=== PATIENT | male | born 1985 | race African-American/Black ===

== ENCOUNTER 2021-07-14 12:17 | Emergency (ER) | payer SELFPAY ==
[~2021-07-14] VITALS: Ht 172.7 cm; Wt 80.9 kg
[2021-07-14 12:28] VITALS: BP 129/83
[2021-07-14] MEDS ORDERED: LIDOCAINE 2% 20 ML VIAL. ONE (13:08)
[2021-07-14] MEDS ORDERED: AMOX1TAB61 PO (13:25)
--- NOTE | 2021-07-14 13:25 | PHYS DOC ---
Adult General Chief Complaint Chief Complaint: ANIMAL BITE HPI HPI Patient is a 36-year-old male presenting for dog bite. Injury onset was yesterday evening. Patient stuck his hand in cage which held his pet pit bull who subsequently bit his right hand. Reports he had minor skin tear to dorsal portion of hand but did suffer a laceration between the web of the second and third digit of right hand. No changes in motor or sensory or neuro function. He is concerned he might need sutures prompting him to come in for evaluation today. Denies any medical issues, unsure when tetanus was last administered Review of Systems Review of Systems Fourteen body systems of review of systems have been reviewed. See HPI for pertinent positives and negative responses, other lopez all other systems are negative, non-pertinent or non-contributory Physical Exam Physical Exam Constitutional: Well developed, well nourished, no acute distress, non-toxic appearance. HENT: Normocephalic, atraumatic, bilateral external ears normal, oropharynx moist, no oral exudates, nose normal. Eyes: PERRLA, EOMI, conjunctiva normal, no discharge. Neck: Normal range of motion, no tenderness, supple, no stridor. Cardiovascular: Heart rate regular per monitor Lungs & Thorax: No respiratory distress or accessory muscle use, bilateral chest rise Abdomen: Abdomen soft, non-tender, bowel sounds present in all quadrants, no guarding or rebound, nonacute abdomen. Skin: Warm, dry, no erythema, no rash. Superficial abrasion and mild soft tissue swelling noted to dorsal portion of right hand with 1.2 cm laceration involving the dorsal webbing between second and third digits without obvious underlying muscle/tendon/ligament interruption or foreign body Back: No tenderness, no CVA tenderness. Extremities: No tenderness, no cyanosis, no clubbing, ROM intact, no edema. Neurologic: Alert and oriented X 3, medial radial and ulnar nerves of bilateral upper extremities intact, normal motor & sensory function, no focal deficits noted. Psychologic: Affect normal, judgement normal, mood normal. Current Patient Data Vital Signs Vital Signs Date Time Temp Pulse Resp B/P (MAP) Pulse Ox O2 Delivery O2 Flow Rate FiO2 07/14/21 12:28 98.3 67 16 129/83 (98) 100 Room Air Vital Signs Date Time Temp Pulse Resp B/P (MAP) Pulse Ox O2 Delivery O2 Flow Rate FiO2 07/14/21 12:28 98.3 67 16 129/83 (98) 100 Room Air EKG EKG [] Radiology/Procedures Radiology/Procedures [] Heart Score C/O Chest Pain: No Risk Factors: Risk Factors: DM, Current or recent (<one month) smoker, HTN, HLP, family history of CAD, obesity. Risk Scores: Risk Factors: DM, Current or recent (<one month) smoker, HTN, HLP, family hi story of CAD, obesity. Course & Med Decision Making Course & Med Decision Making ABCs unremarkable HPI physical exam and comprehensive ER work-up consistent with dog bite Tetanus updated. Joint decision made to start Augmentin. I disclosed need for hand x-ray but patient deferred due to cost and fact that he is asymptomatic, he has full capacity and aware of the risks and benefits of deferring such imaging given crush/bite injury Patient subsequently underwent suture repair with appropriate strict return precautions and wound care instructions advised prior to ER departure Dragon Disclaimer Dragon Disclaimer This electronic medical record was generated, in whole or in part, using a voice recognition dictation system. Incision and Drainage Progress Laceration #1: 1.2 centimeter linear wound. A time out was undertaken to determine that this was the correct patient and the correct procedure for this patient. The patients laceration was prepped and cleansed in the usual fashion. 2cc lidocain 2% administered for anesthetic purposes It was then copiously irrigated with normal saline with high pressure and high volume. The wound was explored in a clear and bloodless field to the base of the wound. There was no evidence of underlying fracture or foreign body. x2 5.0 non-absorbable sutures were placed in a simple interrupted fashion to close the wound. Excellent care was taken to achieve maximal cosmesis. The patient tolerated this procedure well there were no observed nor reported complications. Departure Departure: Impression: Primary Impression: Animal bite Disposition: HOME / SELF CARE / HOMELESS Condition: STABLE Referrals: PCP,RICK (PCP) Patient Instructions: Animal Bite Additional Instructions: You were seen for a laceration. Keep the area clean and dry. You should return to the ED or your PCP office to get your x2 sutures removed in 7-10 days. Return to the ED immediately if you develop any signs of infection like increased pain, redness, fever, or purulent (pus) drainage. Do not take baths, submerge the wound, or use a hot tub until your stitches are removed and the wound is healed. Scripts Amoxicillin/Potassium Clav (AUGMENTIN [id number] TABLET) 1 Each Tablet 1 TAB PO BID for animal bite for 5 Days, #10 TAB 0 Refills Prov: REGINA AUSTIN DO 07/14/21 REGINA AUSTIN DO Jul 14, 2021 13:25
[2021-07-14] MEDS ORDERED: DIPHTH,PERTUSS(ACELL),TET TOX 0.5 ML DISP.SYRIN. VAX IM ONE (13:30)
== END 2021-07-14 14:12 | disposition home or self-care (01) ==
LOC: ER 12:17
DX: S61.411A Laceration without foreign body of right hand, initial encounter (principal); W54.0XXA Bitten by dog, initial encounter; Y93.89 Activity, other specified; Y92.89 Other specified places as the place of occurrence of the external cause; Y99.8 Other external cause status
CPT/HCPCS: 12001; 90471; 90715; 99283